=== PATIENT | male | born 1955 | race Caucasian/White ===

== ENCOUNTER 2018-03-14 02:23 | Outpatient (CLI) | payer MEDICARE, BC, SELFPAY ==
[2018-03-14 12:23] LABS: Hemoglobin A1C 8.2 % (4.5-6.2)
== END 2018-03-14 02:43 ==
PROVIDERS: PCP Family Medicine; Visit Provider Family Medicine
DX: E11.65 Type 2 diabetes mellitus with hyperglycemia (principal)
CPT/HCPCS: 36415; 83036

== ENCOUNTER 2018-12-12 01:33 | Outpatient (CLI) | payer MEDICARE, BC, SELFPAY ==
[2018-12-13 08:30] LABS: Hemoglobin A1C 9.3 % (4.5-6.2)
== END 2018-12-12 01:53 ==
PROVIDERS: PCP Family Medicine; Visit Provider Family Medicine
DX: E11.65 Type 2 diabetes mellitus with hyperglycemia (principal); E11.8 Type 2 diabetes mellitus with unspecified complications
CPT/HCPCS: 36415; 83036

== ENCOUNTER 2019-01-22 12:27 | Outpatient (CLI) | payer MEDICARE, BC, SELFPAY ==
--- NOTE | 2019-01-22 09:46 | DI.MRI_ITS ---
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 Comparison is made with [id number]. The L 1 - 2 and L 2 - 3 levels are unremarkable. There is again noted to be a right foraminal disc protrusion at L 3 - 4. The findings appear slightly smaller than on the previous exam. There is some encroachment on the right neural foramen. At L 4 - 5, there are small endplate osteophytes and mild disc bulging. There is mild facet encroachment into the neural foramen. The L 5 - S 1 level is unremarkable. The marrow signal is normal. The conus medullaris appears intact. The aorta is normal in diameter. IMPRESSION: Improvement in small right foraminal disc protrusion. Stable degenerative disc and facet changes at L 4 - 5 causing mild bilateral neural foraminal encroachment.
== END 2019-01-22 12:47 ==
PROVIDERS: PCP Family Medicine; Visit Provider Family Medicine
DX: M54.16 Radiculopathy, lumbar region (principal); N50.811 Right testicular pain; M51.16 Intervertebral disc disorders with radiculopathy, lumbar region; M47.26 Other spondylosis with radiculopathy, lumbar region
CPT/HCPCS: 72148

== ENCOUNTER 2019-05-30 12:48 | Outpatient (CLI) | payer MEDICARE, BC, SELFPAY ==
--- NOTE | 2019-05-30 11:26 | DI.RAD_ITS ---
EXAM: XR HIP PELVIS ADULT BL INDICATION: pain both hips after fall. COMPARISON: No exams were available for comparison TECHNIQUE: 2D digital imaging was performed. FINDINGS: There is no evidence of fracture or dislocation. The hip joint spaces show mild narrowing superiorly . There is mild acetabular spurring. The SI joints and pubic symphysis appear intact. IMPRESSION: Mild degenerative changes.
== END 2019-05-30 13:08 ==
PROVIDERS: PCP Family Medicine; Visit Provider Family Medicine
DX: M25.551 Pain in right hip (principal); M25.552 Pain in left hip; M16.0 Bilateral primary osteoarthritis of hip
CPT/HCPCS: 73521

== ENCOUNTER 2019-08-27 01:52 | Outpatient (CLI) | payer MEDICARE, BC, SELFPAY ==
[2019-08-27 12:02] LABS: Hemoglobin A1C 7.5 % (3.8-5.6)
== END 2019-08-27 02:12 ==
PROVIDERS: PCP Family Medicine; Visit Provider Family Medicine
DX: E11.65 Type 2 diabetes mellitus with hyperglycemia (principal)
CPT/HCPCS: 36415; 83036

== ENCOUNTER 2019-11-05 01:39 | Outpatient (CLI) | payer MEDICARE, BC, SELFPAY ==
--- NOTE | 2019-11-05 | DI.MRI_ITS ---
EXAM: MR LUMBAR SPINE WO CLINICAL HISTORY: LT L2-3 RADICULOPATHY, PREVIOUS 02/01/19. TECHNIQUE: Multiplanar multisequence MRI of the Lumbar spine was performed. FINDINGS: Mild patient motion artifact is present. Bones: The last intervertebral disc space is designated the L5/S1 level for the numbering purpose of this examination. The vertebral body heights are well maintained. Alignment is satisfactory. The si gnal characteristics are unremarkable. Cord: The conus tip ends at the L1 level. It is of normal size and signal intensity. T12-L1: No disc herniations or bulges are present. No significant central spinal canal or neural for aminal stenosis is present. L1-2: No disc herniations or bulges are present. No significant central spinal canal or neural fora lemuel stenosis is present. L2-3: No disc herniations or bulges are present. No significant central spinal canal or neural forami nal stenosis is present. L3-4: There is again seen a right lateral/foraminal herniation. There is stable narrowing of the ri ght neural foramen. Mild narrowing of the central spinal canal is noted. No significant left neural foraminal stenosis is present. L4-5: There is a small central disc bulge which has increased in size compared to the prior examinat ion. There are degenerative changes of the facets. These all contribute to cause mild narrowing of the central spinal canal. There is also stable mild bilateral neural foraminal narrowing. L5-S1: No disc herniations or bulges are present. No central spinal canal or neural foraminal stenos is is present. Soft tissues: The visualized SI joints and sacrum are well maintained. The paraspinal soft tissues ar e unremarkable. IMPRESSION: 1. Slight increase in size of the disc bulge at L4-L5. There is resultant mild narrowing of the cent ral spinal canal. Stable bilateral mild neural foraminal narrowing is noted. 2. Stable right foraminal herniation at L3-L4 with stable narrowing of the right neural foramen. DATA REPOSITORY:
== END 2019-11-05 01:59 ==
PROVIDERS: PCP Family Medicine; Visit Provider Nurse Practitioner Family
DX: M54.16 Radiculopathy, lumbar region (principal); M51.17 Intervertebral disc disorders with radiculopathy, lumbosacral region
CPT/HCPCS: 72148

== ENCOUNTER 2020-03-10 00:52 | Outpatient (CLI) | payer MEDICARE, BC, SELFPAY ==
--- NOTE | 2020-03-10 13:56 | DI.US_ITS ---
APPROVED REPORT EXAM: Comprehensive 2D, Doppler, and color-flow Echocardiogram Patient Location: Out-Patient Tax Collection Coordinator: Billie Kerns RDCS (AE) Indications: Dyspnea on exertion Other Information Technically limited study due to body habitus. Conclusion This is a technically limited study due to body habitus. Left Ventricle : The left ventricle is normal size. The left ventricular systolic function is normal. The left ventricular ejection fraction is within the normal range. Borderline concentric left ventri cular hypertrophy. LVEF is 50-55%. Right Ventricle : Right ventricle is not well visualized. Right ventricular systolic function could n ot be assessed. The RVSP is estimated to be 47 mmHg. Atria : Left atrium is borderline dilated. Right atrium is borderline dilated. Aortic Valve : The Aortic valve is sclerotic. Aortic valve is trileaflet. There is no aortic valvular stenosis. No aortic regurgitation is present. Great Vessels : The aortic root is normal in size. The ascending aorta is mildly dilated. Aortic arch is not well visualized. The IVC was not visualized. Please see remainder of study for further details. Wall motion Left Ventricle The left ventricle is normal size. The left ventricular systolic function is normal. The left ventric ular ejection fraction is within the normal range. Borderline concentric left ventricular hypertrophy . There is normal LV segmental wall motion. The left ventricular diastolic function is normal. LVEF i s 50-55%. Right Ventricle Right ventricle is not well visualized. Right ventricular systolic function could not be assessed. Th e RVSP is estimated to be 47 mmHg. Atria Left atrium is borderline dilated. Right atrium is borderline dilated. Aortic Valve The Aortic valve is sclerotic. Aortic valve is trileaflet. There is no aortic valvular stenosis. No a ortic regurgitation is present. Mitral Valve Mild mitral annular calcification. No evidence of mitral valve stenosis. Trace mitral regurgitation. Tricuspid Valve The tricuspid valve is normal in structure. There is no tricuspid valve stenosis. Trace tricuspid reg urgitation. Pulmonic Valve The pulmonary valve is normal in structure. There is no pulmonic valvular stenosis. There is no pulmo maria guadalupe valvular regurgitation. Great Vessels The aortic root is normal in size. The ascending aorta is mildly dilated. Aortic arch is not well vis ualized. The IVC was not visualized. 2D Dimensions IVSD d PLAX 1.22 cm M: 0.6-1.2 LV Vol A2C d MOD 85.3 mL LVPW d PLAX 1.23 cm M: 0.6 - 1.2 LV Vol A4C d MOD 81.5 mL LVID d PLAX 4.68 cm M: 4.2 - 5.8 LV EF A4C MOD 53.0 % LVDs 3.35 cm M: 2.5 - 4.0 LV EF A2C MOD 54.9 % Ao Root d 3.03 cm M: 3.1 - 3.7 LV EF Biplane MOD 53.5 % RA Area A4C 16.61 cm2 SV 44.59 mL RA Vol/ BSA A4C s A-L 17.4 mL/m2 SV Index 16.92 mL/m2 Ao Asc Diam d 3.57 cm M: 2.6 - 3.4 LV EF Teichholz 53.3 % LVEF (Brewer's) 53.45 % M: 52 - 72 LV Volume 57.54 mL M: 62 - 150 LV Volume Index 21.87 mL/m2 M: 34 - 74 LV Vol Biplane MOD 83.4 mL FS 27.40 % M-Mode TAPSE 2.03 cm (M/F) >1.7 LV Diastology MV E' medial 0.122 (>0.07 m/s) E/A Ratio 0.9 LV E/e MED 4.55 (<14) MV E Vmax 0.56 (0.4-1.3 m/s) MV E' lateral 0.112 (>0.1 m/s) MV A Vmax 0.65 (0.4-1.3 m/s) LV E/e LAT 4.95 (<14) MV E/A Ratio 0.86 MV E/E' medial 4.59 MV E/E' lateral 4.99 Aortic Valve LVOT Area 2.92 cm2 AoV Area Vmax 2.22 cm2 LVOT Vmax 0.88 m/s AoV Area/ BSA (Vmax) 0.84 cm2/m2 LVOT Mean Mervin. 0.66 m/s AUDIE Mean Mervin. 2.33 cm2 LVOT Peak Grad 3.1 mmHg AUDIE Mean Mervin. Index 0.88 cm2/m2 LVOT Mean Grad 1.8 mmHg LVOT VTI 0.180 m LVOT Diam s 1.90 cm AoV Vmax 1.17 m/s Velocity Ratio 0.75 AoV Mean Mervin. 0.83 m/s AoV Peak Grad 5.4 mmHg LVOT SV 52.65 mL AoV Mean Grad 3.1 mmHg AoV VTI 0.250 m AoV Area VTI 2.11 cm2 AoV Area/ BSA (VTI) 0.80 cm/m2 Mitral Valve MV DT 135 (160-240 msec) MV PHT 39 msec MV Area PHT 5.60 cm2 Pulmonary Valve PV Vmax 0.95 (0.5-1.5 m/s) RVOT Peak Gr. 1.15 mmHg PV Peak Grad 3.6 mmHg RVOT Mean Gr. 0.70 mmHg PV Mean Grad 2.1 mmHg RVOT VTI 0.116 m PV VTI 0.200 m RVOT Vmax 0.54 m/s Tricuspid Valve TR Peak Grad 48.1 mmHg TR Vmax 3.47 m/s RA Pressure 5.00 mmHg RVSP (TR) 50.0 mmHg
== END 2020-03-10 01:12 ==
PROVIDERS: Visit Provider Family Medicine
DX: I77.810 Thoracic aortic ectasia (principal); R06.00 Dyspnea, unspecified
CPT/HCPCS: 93306

== ENCOUNTER 2020-03-12 04:48 | Outpatient (CLI) | payer MEDICARE, BC, SELFPAY ==
[2020-03-12 12:45] LABS: BUN 12 mg/dL (7-18); CREATININE 1.05 mg/dL (0.70-1.30); Calcium 8.6 mg/dL (8.5-10.1); Chloride 101 mmol/L (98-107); Glucose 103 mg/dL (74-106); Potassium 5.2 mmol/L (3.5-5.1); Sodium 139 mmol/L (136-145)
== END 2020-03-12 05:08 ==
PROVIDERS: Visit Provider Family Medicine
DX: I10 Essential (primary) hypertension (principal)
CPT/HCPCS: 36415; 80048

== ENCOUNTER 2020-03-19 02:22 | Outpatient (CLI) | payer MEDICARE, BC, SELFPAY ==
--- NOTE | 2020-03-19 06:45 | DI.NM_ITS ---
APPROVED REPORT Exam: Pharmacologic Patient Location: Out-Patient Room/Bed: Stress Nurse: Heather Rodriguez RN BMI: 40.82 Baseline Rhythm: Sinus Rhythm Comment: T wave inversion V1-V4 Indications: Chest heaviness and dyspnea on exertion. Medical History Medical History: HTN, Hyperlipidemia, Diabetes Cardiac Medications: lisinopril. atenolol. simvastatin. insulin. Allergies: codeine Cardiac Risk Factors: FHX of CAD, former smoker, HTN, Hyperlipidemia, , Diabetes (insulin) Exercise History: Sedentary Physical Disabilities: Back, Knees, Legs Lung Sounds: inspiratory crackles right lower lobe Heart Sounds: Regular Stress Test Details Test: Pharmacologic stress testing performed using 0.4 mg of regadenoson per 5 mL given IV over 10 s econds. Reason for pharmacologic stress test: physical limitation. Nuclear Acquisition: Rest Tc-99m/Stress Tc-99m 1 day Rest Isotope: Tc-99m Sestamibi. Dose: 14.8 Date: 03/19/2020 Injection Time: 0900 Stress Isotope: Tc-99m Sestamibi. Dose: 47 Date: 03/19/2020 Injection Time: 1025 HR Resting HR Supine: 88 bpm Max Heart Rate (APMHR): 158 bpm Target HR (85% APMHR): 134 bpm Max HR Achieved: 95 bpm % of APMHR: 60 Recovery HR: 89 bpm HR response to stress: Normal HR response to stress BP Resting BP Supine: 180/84 mmHg Max BP: 180/84 mmHg BP response to stress: Normal blood pressure response to stress. ECG Resting ECG: Sinus Rhythm Comment: T wave inversions V1-V4 Stress ECG: Sinus Rhythm ST Change: No significant ST segment changes Arrhythmia: rare PAC's Recovery ECG: Sinus Rhythm Recovery ST Change: No significant ST segment changes Recovery ST Deviation: 0.5 mm Clinical Stress Symptoms: No significant side effects post lexiscan injection. Stress ECG Conclusion 1. This is a pharmacological stress test. Patient no symptom suggestive of ischemia. 2. The EKG portion of this exam is nondiagnostic. Stress Test Summary STAGE HR BP Symptoms NOTES Supine 88 180/84 1 min post Lexiscan injection 94 168/74 3 min post Lexiscan injection 90 166/80 6 min post Lexiscan injection 89 178/82 MPI Conclusion The ejection fraction was 70% with stress. There were no wall motion abnormalities. There is no evidence of ischemia on the imaging portion of the exam. This represents a normal SPECT stress test.
[2020-03-19] MEDS: Regadenoson 0.4 MG/5 ML SYR IVP (11:02)
== END 2020-03-19 02:42 ==
PROVIDERS: Visit Provider Family Medicine
DX: R06.00 Dyspnea, unspecified (principal); Z82.49 Family history of ischemic heart disease and other diseases of the circulatory system; Z87.891 Personal history of nicotine dependence; I10 Essential (primary) hypertension; E78.5 Hyperlipidemia, unspecified; E11.9 Type 2 diabetes mellitus without complications; Z79.4 Long term (current) use of insulin
CPT/HCPCS: 78452; 93016; 93018; 93017; J2785

== ENCOUNTER 2020-04-06 07:46 | Outpatient (CLI) | payer MEDICARE, BC, SELFPAY ==
[2020-04-08 17:54] LABS: COVID-19 RT-PCR Result NEGATIVE (Negative)
== END 2020-04-06 08:06 ==
PROVIDERS: Visit Provider Family Medicine
DX: Z11.59 Encounter for screening for other viral diseases (principal); Z01.818 Encounter for other preprocedural examination
CPT/HCPCS: U0003

== ENCOUNTER 2020-04-15 03:24 | Outpatient (CLI) | payer MEDICARE, BC, SELFPAY ==
[2020-04-15] MEDS: Albuterol HFA 18 GM 200 PUFF INH IH (11:04)
[2020-04-15] MEDS: Inhaler, Assist Device 1 EACH MC (11:04)
--- NOTE | 2020-04-16 15:48 | W.PFT ---
Date of service: 04/15/20 Time of Service: 10:00 Pulmonary Function Test Result Interpretation Spirometry: Mild obstructive airways disease with no significant bronchodilator response Lung Volumes: No evidence of restriction. Mild hyperinflation Diffusion Capacity: Normal Airway Pressure: Mildly elevated Impression Mild obstructive airways disease with no significant bronchodilator response, this is associated with mild hyperinflation and elevated airways resistance Clinical Correlation therefore is recommended.
== END 2020-04-15 03:44 ==
DX: R06.00 Dyspnea, unspecified (principal)
CPT/HCPCS: 94060; 94726; 94729

== ENCOUNTER 2021-05-04 08:37 | Outpatient (CLI) | payer MEDICARE, BC, SELFPAY ==
[2021-05-04 12:58] LABS: ALT 35 U/L (16-63); AST 24 U/L (15-37); Albumin 3.8 g/dL (3.4-5.0); Alkaline Phosphatase 51 U/L (46-116); Anion Gap 7.8 mmol/L (3-11); BUN 12 mg/dL (7-18); Bilirubin, Total 0.3 mg/dL (0.2-1.0); CO2 36.2 mmol/L (21.0-32.0); CREATININE 0.9 mg/dL (0.70-1.30); Calcium 9.6 mg/dL (8.5-10.1); Calculated LDL 91 mg/dL (<100); Chloride 100 mmol/L (98-107); Cholesterol 165 mg/dL (<200); Glucose 63 mg/dL (74-106); HDL Cholesterol 51 mg/dL (40-60); Potassium 4.9 mmol/L (3.5-5.1); Sodium 144 mmol/L (136-145); Total Protein 7.6 g/dL (6.4-8.2); Triglyceride 115 mg/dL (<150)
[2021-05-04 13:25] LABS: Hemoglobin A1C 6.2 % (<5.7)
== END 2021-05-04 08:38 | disposition home or self-care (01) ==
LOC: LOS 08:37
DX: E11.9 Type 2 diabetes mellitus without complications; E78.5 Hyperlipidemia, unspecified; I10 Essential (primary) hypertension; Z00.00 Encounter for general adult medical examination without abnormal findings
CPT/HCPCS: 36415; 80053; 80061; 83036

== ENCOUNTER 2022-03-09 03:11 | Outpatient (CLI) | payer MEDICARE, BC, SELFPAY ==
[2022-03-09 12:52] LABS: ALT 37 U/L (16-63); AST 28 U/L (15-37); Albumin 3.7 g/dL (3.4-5.0); Alkaline Phosphatase 50 U/L (46-116); Anion Gap 7.8 mmol/L (3-11); BUN 15 mg/dL (7-18); Bilirubin, Total 0.3 mg/dL (0.2-1.0); CO2 33.2 mmol/L (21.0-32.0); CREATININE 1.2 mg/dL (0.70-1.30); Calcium 9.8 mg/dL (8.5-10.1); Calculated LDL 61 mg/dL (<100); Chloride 100 mmol/L (98-107); Cholesterol 138 mg/dL (<200); Estimated GFR 67.53 (mL/min/1.73m2); Glucose 120 mg/dL (74-106); HDL Cholesterol 52 mg/dL (40-60); Potassium 4.1 mmol/L (3.5-5.1); Sodium 141 mmol/L (136-145); Triglyceride 128 mg/dL (<150)
[2022-03-09 13:04] LABS: Hemoglobin A1C 7.3 % (<5.7)
[2022-03-10 19:51] LABS: Albumin ug/mg Crea 173 (<30); Albumin, Ur 25.4 mg/dL (See Note); Creatinine, Ur 146.5 mg/dL (See Note)
== END 2022-03-09 03:12 | disposition home or self-care (01) ==
LOC: LOS 03:11
PROVIDERS: Family Medicine
DX: E11.65 Type 2 diabetes mellitus with hyperglycemia (principal); I10 Essential (primary) hypertension
CPT/HCPCS: 36415; 80053; 80061; 82043; 82570; 83036

== ENCOUNTER 2022-06-21 03:50 | Outpatient (CLI) | payer MEDICARE, BC, SELFPAY ==
[2022-06-21 22:53] LABS: PSA, Screening 0.4 ng/mL (<=4.5)
== END 2022-06-21 03:51 | disposition home or self-care (01) ==
LOC: LOS 03:51
PROVIDERS: PCP Nurse Practitioner Family; Visit Provider Nurse Practitioner Family
DX: R35.0 Frequency of micturition (principal); Z12.5 Encounter for screening for malignant neoplasm of prostate
CPT/HCPCS: 36415; 84153

== ENCOUNTER → 2023-04-27 15:16 | Outpatient (BNVA) | payer MEDICARE, BC, SELFPAY | PROVIDERS: PCP Nurse Practitioner Family; Referring Provider Nurse Practitioner Family; Visit Provider Podiatrist | DX: E11.621 Type 2 diabetes mellitus with foot ulcer (principal); L97.522 Non-pressure chronic ulcer of other part of left foot with fat layer exposed; E11.42 Type 2 diabetes mellitus with diabetic polyneuropathy; I73.9 Peripheral vascular disease, unspecified; E11.8 Type 2 diabetes mellitus with unspecified complications; E11.65 Type 2 diabetes mellitus with hyperglycemia | CPT/HCPCS: 11042; 99203 ==

== ENCOUNTER → 2023-05-15 11:31 | Outpatient (BNVA) | payer MEDICARE, BC, SELFPAY | PROVIDERS: PCP Nurse Practitioner Family; Referring Provider Nurse Practitioner Family; Visit Provider Podiatrist | DX: E11.621 Type 2 diabetes mellitus with foot ulcer (principal); L97.522 Non-pressure chronic ulcer of other part of left foot with fat layer exposed; I73.89 Other specified peripheral vascular diseases; E11.42 Type 2 diabetes mellitus with diabetic polyneuropathy; E11.65 Type 2 diabetes mellitus with hyperglycemia | CPT/HCPCS: 97597 ==

== ENCOUNTER → 2023-05-15 12:01 | Outpatient (BNVA) | payer MEDICARE, BC, SELFPAY | PROVIDERS: PCP Nurse Practitioner Family; Referring Provider Podiatrist; Visit Provider Physical Therapy Assistant | DX: I73.9 Peripheral vascular disease, unspecified (principal); L97.529 Non-pressure chronic ulcer of other part of left foot with unspecified severity; L97.922 Non-pressure chronic ulcer of unspecified part of left lower leg with fat layer exposed | CPT/HCPCS: 93922; 97597 ==

== ENCOUNTER 2024-01-15 14:28 | Outpatient (CLI) | payer MEDICARE, BC, SELFPAY ==
--- NOTE | 2024-01-15 14:15 | DI.RAD_ITS ---
Exam(s) XR KNEE RT 3V AP,LAT,MARGARITA EXAM: XR KNEE RT 3V AP,LAT,MARGARITA CLINICAL HISTORY: right knee pain. TECHNIQUE: 2D digital imaging was performed of the right knee. Three views obtained. AP, lateral an d PA tunnel views were obtained. COMPARISON: No exams were available for comparison FINDINGS: BONES: No acute fracture is present. No bony destructive lesion is seen. Postsurgical changes are see n in the distal femur and proximal tibia. JOINTS: There is mild narrowing of the medial femoral tibial joint. There osteophytes seen in the me dial femoral tibial and patellofemoral joints. No joint effusion is seen. SOFT TISSUE: Normal. IMPRESSION: Degenerative and postsurgical changes in the right knee as described above. DATA REPOSITORY: RADIATION DOSE DELIVERED:
--- NOTE | 2024-01-15 14:15 | DI.RAD_ITS ---
Exam(s) XR FINGER RT MIDDLE EXAM: XR FINGER RT MIDDLE CLINICAL HISTORY: right middle finger pain. TECHNIQUE: 2D digital imaging was performed. Three views. COMPARISON: No exams were available for comparison FINDINGS: BONES: No acute fracture is present. No bony destructive lesion is seen. JOINTS: No dislocation present. Minimal narrowing of the interphalangeal joints. SOFT TISSUE: Normal. IMPRESSION: Minimal degenerative changes of the interphalangeal joints. DATA REPOSITORY: RADIATION DOSE DELIVERED:
== END 2024-01-15 14:29 | disposition home or self-care (01) ==
LOC: DIORS 14:28
PROVIDERS: PCP Nurse Practitioner Family; Referring Provider Nurse Practitioner Family; Visit Provider Student in an Organized Health Care Education/Training Program
DX: M65.331 Trigger finger, right middle finger; T84.84XA Pain due to internal orthopedic prosthetic devices, implants and grafts, initial encounter; Z98.890 Other specified postprocedural states; S83.521D Sprain of posterior cruciate ligament of right knee, subsequent encounter; X58.XXXD Exposure to other specified factors, subsequent encounter
CPT/HCPCS: 20550; 73562; 99203; J1010; 73140